=== PATIENT | female | born 1970 | race Caucasian/White ===

== ENCOUNTER 2016-12-07 16:09 | Emergency (ER) | payer OTHER ==
--- NOTE | ~2016-12-07 | CT2 ---
[facility]. [facility] A Service of [facility] RADIOLOGY TEXT RESULTS PATIENT: LILIANA VILLATORO LOCATION: SED : 70 UNIT #: [id number] AGE: [address]: Luis Ellsworth MD SEX: F ORDER DR: [id number] [address] [address] [id number] E MR#: [id number] #: [id number] NAME: LILIANA VILLATORO. : 1970 SEX: F STUDY DATE/TIME: 12/07/2016 19:12 UNIT: SED ROOM: STUDY DESCRIPTION: CT Abd and Pelv W Cont Attending Physician: Luis Ellsworth M.D. Ordering Physician: Neeta Tolentino M.D. Primary Care Physician: Ryan Romano M.D. MEDICAL IMAGING REPORT This report is preliminary unless electronic signature is present. EXAM CT abdomen and pelvis with contrast HISTORY Mid abdominal pain, vomiting starting [address] exam was performed with one or more of the following radiation dose reduction techniques: automatic exposure control, adjustment of mA and/or kV according to patient size, and iterative reconstruction. FINDINGS Axial images performed through the abdomen and pelvis following IV contrast. Multiplanar reconstructed images were reviewed. ABDOMEN: Lung bases unremarkable. Liver demonstrates fatty infiltration. Spleen unremarkable. The gallbladder demonstrates mild distension but no definite pericholecystic fluid or gallbladder wall thickening. No stones by CT. Pancreas, kidneys and adrenal glands unremarkable. No free air or free fluid. Visualized GI tract unremarkable. Retroperitoneum appears normal. PELVIS: Bladder is decompressed. Uterus unremarkable. The adnexa demonstrates a probable small right adnexal cyst. There is a midline ventral hernia in the suprapubic region measuring about 2 cm x 4.5 cm at its neck containing omental fat only. There is some induration of the adjacent fat, nonspecific. Degenerative disc changes seen in the lower lumbar spine most pronounced L4-5, L5-S1. Generalized obesity. IMPRESSION 1. Mild fatty change of the liver. 2. Questionable mild distension of the gallbladder and some gallbladder [facility] A Service of [facility] RADIOLOGY TEXT RESULTS PATIENT: LILIANA VILLATORO LOCATION: [facility] : [birth year] UNIT #: [id number] AGE: [address]: Luis Ellsworth MD SEX: F ORDER DR: wall thickening not excluded. Correlate with directed physical exam. No obvious ductal dilatation or gallstones. 3. Ventral hernia containing omental fat only. This is suprapubic in location. 4. Lower lumbar spine degenerative disc disease and facet arthropathy. Dictated by... Vin Chopra M.D. THIS IS AN ELECTRONICALLY VERIFIED REPORT Vin Chopra M.D. at 12/08/2016 2:21 PM KATEY/matt TD: 12/07/2016 23:14 JOB #: [id number] MEDICAL IMAGING REPORT Page 1 of 1
[~2016-12-07 16:09] MED LIST: ACETAMINOPHEN PR; ALBUTEROL17 GM INH; AMOXIL500 MG PO; BACITRACIN3.5 G1 OP; BACTRIM DS TABL1 TA1 PO; CLEOCIN HCL300 M1 PO; DOXYCYCLINE PO; ERYTHROMYC3.5 GM OPT OD; IBUPROFEN800 MG PO; KEFLEX500 MG PO; LORTAB 5/500 TA1 TA1 PO; MOBIC PO; NO MEDICATIONS; PERCOCET PO; PERCOCET5/325; PHENERGAN DM1 ML PO; PHENERGAN25 MG PO; PREDNISONE PO; ROBINUL FORTE2 MG PO; ROBITUSSIN-DM118 ML PO; SILVADENE TOP; SULFACETAMIDE S TOP; TYLENOL #3 PO; VICODIN PO; VOLTAREN50 MG PO; ZYRTEC PO
[2016-12-07] MEDS ORDERED: MULTIVITAMINS1 EAC3 (16:23)
[2016-12-07] MEDS ORDERED: CALCIUM500 M1 (16:23)
[2016-12-07 17:14] LABS: URINE SOURCE CLEAN CATCH
[2016-12-07 17:17] LABS: URINE APPEARANCE SL CLOUDY; URINE BLOOD 3+ (NEG); URINE COLOR YELLOW; URINE GLUCOSE NEG (NORM); URINE KETONE 1+ (NEG); URINE LEUKOCYTE ESTERASE 1+ (NEG); URINE NITRATE NEG (NEG); URINE PROTEIN 2+ (NEG); URINE SPECIFIC GRAVITY >=1.030 (1.003-1.035)
[2016-12-07 17:30] LABS: MICRO INDICATED? YES; URINE BILIRUBIN NEG (NEG)
[2016-12-07 17:49] LABS: CULTURE INDICATED? YES; URINE BACTERIA 1+ (NEG); URINE SQUAMOUS EPITHELIAL CELL MANY /[HPF]
[2016-12-07 17:52] LABS: BASOPHIL# 0.1 X10e3 (0-0.3); BASOPHIL% 0.5 % (0-2.5); EOSINOPHIL# 0.2 X10e3 (0-0.7); EOSINOPHIL% 1.5 % (0.0-7.0); HEMATOCRIT 40.2 % (35.0-45.0); HEMOGLOBIN 13.5 gm/dL (12.0-16.0); LYMPHOCYTE# 1.4 X10e3 (1.0-3.5); LYMPHOCYTE% 8.6 % (17.0-45.0); MEAN CELL VOLUME 84.3 FL (83-96); MEAN CORPUSCULAR HEMOGLOBIN 28.4 PG (28-34); MEAN CORPUSCULAR HGB CONC 33.7 g/dL (30-36); MEAN PLATELET VOLUME 9.1 FL (6.5-11.5); MONOCYTE# 0.7 X10e3 (0-1.0); NEUTROPHIL% 85.4 % (40-75); PLATELET COUNT 267 X10e3 (140-420); RED BLOOD COUNT 4.77 X10e (3.90-5.30); RED CELL DISTRIBUTION WIDTH 14.3 % (11.0-15.5); WHITE BLOOD COUNT 16.4 X10e3 (4.0-10.5)
[2016-12-07 17:54] LABS: DIFF IND NO
[2016-12-07 18:08] LABS: ALBUMIN SERUM 3.6 g/dL (3.5-5.0); BILIRUBIN, DIRECT 0.4 mg/dL (0.0-0.2); BILIRUBIN,INDIRECT 0.8 mg/dL (0.0-0.9); BILIRUBIN,TOTAL 1.2 mg/dL (0.2-2.0); BUN/CREATININE RATIO 12.5; CALCIUM SERUM 8.5 mg/dL (8.4-10.2); CREATININE SERUM 0.8 mg/dL (0.6-1.4); GLOM FILT RATE Estimated 88.5 mL/min (>60); POTASSIUM 3.3 mmol/L (3.5-5.1); PROTEIN TOTAL SERUM 7.1 g/dL (6.0-8.3)
== END 2016-12-07 21:00 | disposition home or self-care (01) ==
LOC: SED 16:09
PROVIDERS: Emergency Medicine
DX: K80.50 Calculus of bile duct without cholangitis or cholecystitis without obstruction (principal); I10 Essential (primary) hypertension; F17.210 Nicotine dependence, cigarettes, uncomplicated; Z98.51 Tubal ligation status
CPT/HCPCS: 74177; 80048; 80076; 81003; 82150; 83690; 84703; 85025; 87086; 96361; 96374; 96375; 99284; J2270; J2405; Q9967